=== PATIENT | female | born 1975 | race Two or more races ===

== ENCOUNTER 2016-10-11 21:21 | Emergency (ER) | payer OTHER ==
[2016-10-11 21:37] VITALS: BP 120/84; PULSE 77; TEMP 97.8; BMI 29.2
--- NOTE | 2016-10-11 22:03 | PDOC ---
History of Present Illness - General Chief Complaint: Pain, Acute Stated Complaint: RT WRIST PAIN Time Seen by Provider: 10/11/16 21:38 History Source: Patient Exam Limitations: No Limitations - History of Present Illness Initial Comments: 10/11/16 22:01 41 year-old female presents the ED with complaints of right wrist. Patient states was out this weekend drinking when she fell at a club on her right wrist. Patient states states this unable to flex or rotate her wrist secondary to discomfort. Patient denies any sensory changes distally and has not taken anything for the pain. Occurred: reports: this morning Severity: reports: mild Upper Extremity Pain Location: right: wrist Method of Injury: reports: fell Modifying Factors: improves with: None Extremity Pain Location - Extremity Pain Location Extremity Pain Locations: right: hand Past History - Past Medical History Allergies/Adverse Reactions: Allergies Allergy/AdvReac Type Severity Reaction Status Date / Time amoxicillin [Amoxicillin] Allergy Verified 10/11/16 21:34 ibuprofen Allergy Verified 10/11/16 21:34 Penicillins Allergy Verified 10/11/16 21:34 SEAFOOD Allergy Uncoded 10/11/16 21:34 Home Medications: Ambulatory Orders NK [No Known Home Medication] 10/11/16 Asthma: No Cancer: No Cardiac Disorders: No Diabetes: No HTN: No Seizures: No Thyroid Disease: No - Reproductive History (#): 6 Para: 4 - Immunization History Immunization Up to Date: No - Psycho/Social/Smoking Cessation Hx Anxiety: No Suicidal Ideation: No Smoking History: Never smoked Have you smoked in the past 12 months: No Number of Cigarettes Smoked Daily: 0 Information on smoking cessation initiated: No Hx Alcohol Use: No Drug/Substance Use Hx: No Substance Use Type: None Hx Substance Use Treatment: No Patient Lives Alone: No Lives with/in: spouse/SO Review of Systems - Review of Systems Able to Perform ROS?: Yes Constitutional: No: Symptoms Reported Respiratory: No: Symptoms reported Musculoskeletal: Yes: Joint Pain (right wrist), Joint Swelling (Right wrist ) Integumentary: No: Symptoms Reported Neurological: No: Numbness, Tingling, Weakness Hematologic/Lymphatic: No: Symptoms Reported *Physical Exam - Vital Signs Last Vital Signs Temp Pulse Resp BP Pulse Ox 97.8 F 77 14 120/84 99 10/11/16 21:35 10/11/16 21:35 10/11/16 21:35 10/11/16 21:35 10/11/16 21:35 - Physical Exam General Appearance: Yes: Nourished, Appropriately Dressed. No: Apparent Distress Comments:: 10/11/16 22:00 2+ right radial Extremity: positive: Normal Capillary Refill, Tender (over the distal right ulna. No crepitus or deformity). negative: Normal Range of Motion (secondary to discomfort) Integumentary: positive: Normal Color, Warm, Moist, Swelling (mild - over the distal right ulnar) Neurologic: positive: Motor Strength 5/5 (right fingers x 5). negative: Numbness, Sensory Deficit ED Treatment Course - RADIOLOGY Radiology Studies Ordered: Category Date Time Status WRIST- RIGHT [RAD] Stat Radiology 10/11/16 21:53 Ordered Medical Decision Making - Medical Decision Making 10/11/16 22:03 Patient with right wrist injury. Patient with mild edema and tenderness over the distal right ulna. Patient ordered for x-ray 10/11/16 22:13 X-ray negative for acute findings. Patient will be recommended to apply ice, rest and take NSAIDs for discomfort. *DC/Admit/Observation/Transfer Diagnosis at time of Disposition: Contusion of right wrist Qualifiers: Encounter type: initial encounter Qualified Code(s): S60.211A - Contusion of right wrist, initial encounter - Discharge Dispostion Disposition: HOME Condition at time of disposition: Good - Referrals Referrals: Casa Man MD [Primary Care Provider] - Kj Richter MD [Staff Physician] - - Patient Instructions Printed Discharge Instructions: DI for Wrist Pain Additional Instructions: Your x-ray did not show any signs of fracture or acute findings. I do recommend that you rest take NSAIDs such as Motrin and apply ice to the affected area for the next 3 days if no improvement over the next 5 days please contact referred orthopedist.
== END 2016-10-11 22:15 | disposition home or self-care (01) ==
LOC: JERFT 21:21
DX: S60.211A Contusion of right wrist, initial encounter (principal); W18.39XA Other fall on same level, initial encounter; Y93.89 Activity, other specified; Y92.59 Other trade areas as the place of occurrence of the external cause; Y99.8 Other external cause status
CPT/HCPCS: 73110-TC-RT; 99281-25

== ENCOUNTER 2019-07-18 20:01 | Emergency (ER) | payer OTHER ==
[2019-07-18 20:06] VITALS: BMI 25.7
--- NOTE | 2019-07-18 21:40 | PDOC ---
*Physical Exam - Vital Signs Last Vital Signs Temp Pulse Resp BP Pulse Ox 98.5 F 102 H 20 136/80 95 07/18/19 20:03 07/18/19 20:03 07/18/19 20:03 07/18/19 20:03 07/18/19 20:03 Discharge - Follow up/Referral Referrals: Sheron Reilly [Primary Care Provider] - - Patient Discharge Instructions - Post Discharge Activity
--- NOTE | 2019-07-18 21:40 | PDOC ---
History of Present Illness - General Chief Complaint: Pain Stated Complaint: ABD PAIN Time Seen by Provider: 07/18/19 21:40 - History of Present Illness Initial Comments: 07/18/19 23:44 44 year old woman with no pmhx who presents with 2 months if intermittent epigastric cramping pain that onsets after eating and when lying down. She denies any nausea or vomiting. Denies diarrhea, constipation fever. She only endorses a surgical history of tubal ligation but no other complaints. Denies regular alcohol use ROS GENERAL/CONSTITUTIONAL: No fever or chills. No weakness. HEAD, EYES, EARS, NOSE AND THROAT: No change in vision. No ear pain or discharge. No sore throat. CARDIOVASCULAR: No chest pain or shortness of breath RESPIRATORY: No cough, wheezing, or hemoptysis. GASTROINTESTINAL: No nausea, vomiting, diarrhea or constipation. GENITOURINARY: No dysuria, frequency, or change in urination. MUSCULOSKELETAL: No joint or muscle swelling or pain. No neck or back pain. SKIN: No rash PE GENERAL: Awake, alert, and fully oriented, in no acute distress HEAD: No signs of trauma, normocephalic, atraumatic EYES: EOMI, sclera anicteric, conjunctiva clear ENT: oropharynx clear without exudates. Moist mucosa NECK: Normal ROM, supple LUNGS: No distress, speaks full sentences, clear to auscultation bilaterally HEART: Regular rate and rhythm, normal S1 and S2, no murmurs, rubs or gallops, peripheral pulses normal and equal bilaterally. ABDOMEN: Soft, + epigastric tenderness, slight bilateral lower quadrant tenderness, normoactive bowel sounds. No guarding, no rebound. No masses EXTREMITIES : Normal inspection, Normal range of motion, no edema. No clubbing or cyanosis. NEUROLOGICAL: Cranial nerves II through XII grossly intact. Normal speech, normal gait, no focal sensorimotor deficits SKIN: Warm, Dry, normal turgor, no rashes or lesions noted MDM DDX including but not limited to: pancreatitis vs cholelithiasis r/o appendicitis ED Course: labs wnl lipase negative Angelica Dumont, PGY2 Emergency Medicine Past History - Past Medical History Allergies/Adverse Reactions: Allergies Allergy/AdvReac Type Severity Reaction Status Date / Time amoxicillin [Amoxicillin] Allergy Verified 10/11/16 21:34 ibuprofen Allergy Verified 10/11/16 21:34 Penicillins Allergy Verified 10/11/16 21:34 SEAFOOD Allergy Uncoded 10/11/16 21:34 Home Medications: Ambulatory Orders NK [No Known Home Medication] 10/11/16 Asthma: No Cancer: No Cardiac Disorders: No Diabetes: No HTN: No Seizures: No Thyroid Disease: No - Reproductive History (#): 6 Para: 4 - Immunization History Immunization Up to Date: No - Psycho Social/Smoking Cessation Hx Smoking History: Never smoked Have you smoked in the past 12 months: No Number of Cigarettes Smoked Daily: 0 Hx Alcohol Use: No Drug/Substance Use Hx: No Substance Use Type: None Hx Substance Use Treatment: No *Physical Exam - Vital Signs Last Vital Signs Temp Pulse Resp BP Pulse Ox 98.5 F 102 H 20 136/80 95 07/18/19 20:03 07/18/19 20:03 07/18/19 20:03 07/18/19 20:03 07/18/19 20:03 ED Treatment Course - LABORATORY CBC & Chemistry Diagram: 07/18/19 22:36 07/18/19 22:36 Discharge - Discharge Information Problems reviewed: Yes Clinical Impression/Diagnosis: Biliary colic, Enteritis Condition: Fair Disposition: HOME - Admission No - Follow up/Referral Referrals: Sheron Reilly [Primary Care Provider] - Manuel Simeon MD [Staff Physician] - - Patient Discharge Instructions Patient Printed Discharge Instructions: DI for Gallstones Additional Instructions: You were seen in the ED for abdominal pain Your labwork and imaging were significant for gallstones You likely have pain due to gallstones called biliary colic You have a referral to surgery for optional gallbladder removal Please follow up with your Family Doctor within 1 week. Return to the ER if you have worsening abdominal pain, nausea, vomiting, fever or any other concerning symptoms. - Post Discharge Activity
--- NOTE | 2019-07-18 21:43 | PDOC ---
Attending Attestation - Resident Resident Name: Angelica Dumont - ED Attending Attestation I have performed the following: I have examined & evaluated the patient, The case was reviewed & discussed with the resident, I agree w/resident's findings & plan - HPI HPI: 07/18/19 23:38 see resident hpi - Physicial Exam PE: 07/18/19 23:38 agree with resident exam - Medical Decision Making 07/18/19 23:39 44-year-old female with complaints of epigastric pain though tender to the lower abdomen Plan for right upper quadrant ultrasound and CT scan abdomen and pelvis for further evaluation IV fluids, antacids and analgesics administered
[2019-07-18] MEDS ORDERED: FAMOTIDINE 20 MG/50 ML IVPB 20 MG/50 ML MG IVPB ONE ×2 (21:50→22:21)
[2019-07-18] MEDS ORDERED: MAG HYDROX/AL HYDROX/SIMETH 30 ML UNIT-DOSE CUP PO ONE (21:50)
[2019-07-18] MEDS ORDERED: ACETAMINOPHEN 1000 MG/100 ML VIAL (NON FORMULARY) IVPB ONE (21:58)
[2019-07-18] MEDS ORDERED: SODIUM CHLORIDE 1,000 ML IV SCH (22:00)
[2019-07-18] MEDS ORDERED: ACETAMINOPHEN INJECTION 100 ML IVPB ONE (22:21)
[2019-07-18] MEDS ORDERED: MAG HYDROX/AL HYDROX/SIMETH 30 ML UNIT-DOSE CUP ONE (22:21)
[2019-07-18 23:01] LABS: BASO % 0.5 % (0-2.0); EOS % 1.1 % (0-4.5); HEMATOCRIT 38.8 % (32.4-45.2); HEMOGLOBIN 13.1 GM/dL (10.7-15.3); LYMPH % 27.8 % (8-40); MCH 31.2 pg (25.7-33.7); MCHC 33.7 g/dl (32.0-36.0); MEAN CELL VOLUME 92.7 fl (80-96); MEAN PLT VOLUME 7.9 fl (7.5-11.1); MONO % 7.5 % (3.8-10.2); NEUT % 63.1 % (42.8-82.8); PLATELET COUNT 299 K/MM3 (134-434); RBC 4.18 M/mm3 (3.60-5.2); RDW 13.3 % (11.6-15.6); WHITE BLOOD COUNT 12.3 K/mm3 (4.0-10.0)
[2019-07-18 23:22] LABS: AMYLASE 73 U/L (25-115); LIPASE 121 U/L (73-393)
[2019-07-18 23:25] LABS: ALBUMIN 3.6 g/dl (3.4-5.0); BILIRUBIN,TOTAL 0.3 mg/dL (0.2-1); BLOOD UREA NITROGEN 10.3 mg/dL (7-18); CALCIUM 8.7 mg/dL (8.5-10.1); CREATININE 0.8 mg/dL (0.55-1.3); POTASSIUM 4.2 mmol/L (3.5-5.1); TOT PROT 6.9 g/dl (6.4-8.2)
[2019-07-19 00:31] LABS: EPI CELLS 0.9 /HPF (0-5/HPF); HYALINE CASTS 0 /lpf (0-8); PH,URINE 6.5 (5.0-8.0); URINE APPEARANCE CLEAR; URINE BACTERIA 811.8 /hpf (NEGATIVE); URINE BILIRUBIN NEGATIVE (NEGATIVE); URINE COLOR YELLOW; URINE GLUCOSE (UA) NEGATIVE (NEGATIVE); URINE KETONE NEGATIVE (NEGATIVE); URINE LEUK ESTERASE 1+ (NEGATIVE); URINE NITRITE NEGATIVE (NEGATIVE); URINE PROTEIN NEGATIVE (NEGATIVE); URINE RBC 1 /hpf (0-4); URINE UROBILINOGEN 0.2 mg/dL (0.2-1.0); URINE WBC 8 /hpf (0-5)
[2019-07-19 05:19] VITALS: BP 120/76; PULSE 90; TEMP 98.3
--- NOTE | 2019-07-19 10:29 | EKG ---
Test Reason : Blood Pressure : / mmHG Vent. Rate : 081 BPM Atrial Rate : 081 BPM P-R Int : 134 ms QRS Dur : 082 ms QT Int : 382 ms P-R-T Axes : 043 062 024 degrees QTc Int : 443 ms NORMAL SINUS RHYTHM WITH SINUS ARRHYTHMIA NORMAL ECG WHEN COMPARED WITH ECG OF 30-JUN-2005 16:27, QRS DURATION HAS DECREASED NON-SPECIFIC CHANGE IN ST SEGMENT IN ANTERIOR LEADS Confirmed by MELIA MARK, MELISSA ([id number]) on 07/19/2019 10:29:41 AM Referred By: Confirmed By:MELISSA CÁRDENAS MD
== END 2019-07-19 03:45 | disposition home or self-care (01) ==
LOC: JER 20:01
PROC: 3E033GC Introduction of Other Therapeutic Substance into Peripheral Vein, Percutaneous Approach (ICD-10-PCS; principal; 2019-07-18)
PROC: 3E033NZ Introduction of Analgesics, Hypnotics, Sedatives into Peripheral Vein, Percutaneous Approach (ICD-10-PCS; 2019-07-18)
DX: K80.20 Calculus of gallbladder without cholecystitis without obstruction (principal); K52.9 Noninfective gastroenteritis and colitis, unspecified; Z88.0 Allergy status to penicillin; Z88.6 Allergy status to analgesic agent; Z91.013 Allergy to seafood
CPT/HCPCS: 36415; 74177-TC; 76705-TC; 80053; 81003; 82150; 83690; 84484; 84703; 85025; 87086; 87186; 93005; 93010; 96365; 96375; 99283-25; J0131; J7030

== ENCOUNTER 2019-08-11 12:11 | Emergency (ER) | payer OTHER ==
[2019-08-11 12:16] VITALS: BP 130/67; PULSE 92; TEMP 98.2; BMI 34.3
--- NOTE | 2019-08-11 13:06 | PDOC ---
History of Present Illness - General Chief Complaint: Rash Stated Complaint: Allergic Reaction Time Seen by Provider: 08/11/19 12:24 History Source: Patient Exam Limitations: No Limitations - History of Present Illness Initial Comments: 08/11/19 12:54 44 year old female with no significant medical history post op day 2 cholecystectomy and surgical history of tubal ligation complaining of rash this am. Patient states taking docusate, nitrofurontoin, and tramadol since surgery. States awaken this am with itching rash, unsure which medication caused the rash. Denies itching of throat or difficulty swallowing. 08/11/19 17:43 Timing/Duration: reports: this morning Severity: Yes: mild Location: reports: extremities, torso Respiratory Risk Factors: reports: no cause identified Modifying Factors: improves with: other (no intervention so far) Associated Symptoms: reports: rash. denies: sore throat Past History - Travel Traveled outside of the country in the last 30 days: No Close contact w/someone who was outside of country & ill: No - Past Medical History Allergies/Adverse Reactions: Allergies Allergy/AdvReac Type Severity Reaction Status Date / Time amoxicillin [Amoxicillin] Allergy Verified 08/11/19 12:15 ibuprofen Allergy Verified 08/11/19 12:15 Penicillins Allergy Verified 08/11/19 12:15 SEAFOOD Allergy Uncoded 08/11/19 12:15 Home Medications: Ambulatory Orders Nitrofurantoin Monohyd/M-Cryst [Macrobid -] 100 mg PO BID #14 capsule 08/01/19 Diphenhydramine [Benadryl -] 50 mg PO TID #21 capsule 08/11/19 Asthma: No Cancer: No Cardiac Disorders: No COPD: No Diabetes: No HTN: No Seizures: No Thyroid Disease: No - Surgical History Cholecystectomy: Yes - Reproductive History (#): 6 Para: 4 - Immunization History Immunization Up to Date: No - Psycho Social/Smoking Cessation Hx Smoking History: Never smoked Have you smoked in the past 12 months: No Number of Cigarettes Smoked Daily: 0 Hx Alcohol Use: No Drug/Substance Use Hx: No Substance Use Type: None Hx Substance Use Treatment: No Review of Systems - Review of Systems Able to Perform ROS?: Yes Is the patient limited Irish proficient: No Constitutional: No: Chills, Fever HEENTM: No: Eye Pain, Cataracts, Nose Pain, Throat Pain, Throat Swelling, Difficulty Swallowing, Mouth Swelling Respiratory: No: Orthopnea, Wheezing Cardiac (ROS): No: Chest Pain, Lightheadedness ABD/GI: No: Nausea, Poor Appetite, Indigestion : No: Hematuria, Incontinence, Pain Musculoskeletal: No: Joint Pain, Muscle Weakness Integumentary: Yes: Rash. No: Bruising, Erythema Neurological: No: Headache, Numbness, Paresthesia *Physical Exam - Vital Signs Last Vital Signs Temp Pulse Resp BP Pulse Ox 98.2 F 92 H 18 130/67 98 08/11/19 12:11 08/11/19 12:11 08/11/19 12:11 08/11/19 12:11 08/11/19 12:11 - Physical Exam General Appearance: Yes: Nourished HEENT: positive: EVONNE, Pharynx Normal. negative: TM Bulging, TM Dull Neck: positive: Supple. negative: Lymphadenopathy (R), Lymphadenopathy (L) Respiratory/Chest: positive: Lungs Clear Cardiovascular: positive: Regular Rhythm, Regular Rate Extremity: positive: Normal Range of Motion Integumentary: positive: Hives, Rash. negative: Swelling Neurologic: positive: Fully Oriented, Alert Medical Decision Making - Medical Decision Making 08/11/19 17:55 44 year old female with no significant medical history post op day 2 cholecystectomy and surgical history of tubal ligation complaining of rash this am. Patient states taking docusate, nitrofurontoin, and tramadol since surgery. States awaken this am with itching rash, unsure which medication caused the rash. Denies itching of throat or difficulty swallowing. Rash rx: benadryl will start when she gets home Discharge - Discharge Information Problems reviewed: Yes Clinical Impression/Diagnosis: Rash and nonspecific skin eruption Condition: Good Disposition: HOME - Admission No - Additional Discharge Information Prescriptions: Diphenhydramine [Benadryl -] 50 mg PO TID #21 capsule - Follow up/Referral - Patient Discharge Instructions Patient Printed Discharge Instructions: DI for Rash Additional Instructions: -Drink plenty of fluids -Stop taking medications you are taking now -Use prune juice, fruits, and vegetable to help with constipation -Call primary physician for follow up as needed - Post Discharge Activity Work/Back to School Note: Back to Work
== END 2019-08-11 13:16 | disposition home or self-care (01) ==
LOC: JERFT 12:11
DX: L50.9 Urticaria, unspecified (principal); R21 Rash and other nonspecific skin eruption; Z90.49 Acquired absence of other specified parts of digestive tract; Z98.51 Tubal ligation status; Z88.0 Allergy status to penicillin; Z91.013 Allergy to seafood; Z88.6 Allergy status to analgesic agent
CPT/HCPCS: 99281-25

== ENCOUNTER 2019-09-03 14:34 | Emergency (ER) | payer OTHER ==
[2019-09-03 14:55] VITALS: BP 132/84; PULSE 72; TEMP 98.2; BMI 31.2
[2019-09-03] MEDS ORDERED: ACETAMINOPHEN 500 MG TABLET (FP) ONE (15:13)
[2019-09-03] MEDS ORDERED: ACETAMINOPHEN 500 MG TABLET (FP) PO ONE (15:13)
--- NOTE | 2019-09-03 15:28 | PDOC ---
History of Present Illness - General Chief Complaint: Injury Stated Complaint: FALL/NECK PAIN Time Seen by Provider: 09/03/19 15:05 History Source: Patient - History of Present Illness Occurred: reports: yesterday Pain Location: reports: back, neck Method of Injury: Yes: fall Past History - Past Medical History Allergies/Adverse Reactions: Allergies Allergy/AdvReac Type Severity Reaction Status Date / Time amoxicillin [Amoxicillin] Allergy Verified 08/11/19 12:15 ibuprofen Allergy Verified 08/11/19 12:15 Penicillins Allergy Verified 08/11/19 12:15 SEAFOOD Allergy Uncoded 08/11/19 12:15 Home Medications: Ambulatory Orders Nitrofurantoin Monohyd/M-Cryst [Macrobid -] 100 mg PO BID #14 capsule 08/01/19 Diphenhydramine [Benadryl -] 50 mg PO TID #21 capsule 08/11/19 Acetaminophen [Tylenol] 650 mg PO Q6H #30 capsule 09/03/19 Oxycodone HCl/Acetaminophen [Percocet 5-325 mg Tablet] 1 tab PO Q6H #8 tablet MDD 3 doses 09/03/19 Asthma: No Cancer: No Cardiac Disorders: No COPD: No Diabetes: No HTN: No Seizures: No Thyroid Disease: No - Surgical History Cholecystectomy: Yes - Reproductive History (#): 6 Para: 4 - Immunization History Immunization Up to Date: No - Psycho Social/Smoking Cessation Hx Smoking History: Never smoked Have you smoked in the past 12 months: No Number of Cigarettes Smoked Daily: 0 Hx Alcohol Use: No Drug/Substance Use Hx: No Substance Use Type: None Hx Substance Use Treatment: No Review of Systems - Review of Systems ABD/GI: No: Nausea, Vomiting Musculoskeletal: Yes: Back Pain, Neck Pain. No: Joint Swelling Neurological: No: Headache, Numbness, Tingling, Weakness, Dizziness *Physical Exam - Vital Signs Last Vital Signs Temp Pulse Resp BP Pulse Ox 98.2 F 72 16 132/84 100 09/03/19 14:53 09/03/19 14:53 09/03/19 14:53 09/03/19 14:53 09/03/19 14:53 - Physical Exam General Appearance: Yes: Appropriately Dressed, Mild Distress HEENT: positive: Normal Voice Neck: positive: Tender (to b/l sternocleidomastoid muscles, no midline ttp, LROM 2/2 pain), Supple Respiratory/Chest: negative: Respiratory Distress Musculoskeletal: positive: Other (diffuse ttp to back) Extremity: negative: Tender, Swelling Integumentary: positive: Dry, Warm Neurologic: positive: Fully Oriented, Alert, Normal Mood/Affect, Motor Strength 5/5 Medical Decision Making - Medical Decision Making 09/03/19 15:17 44-year-old female, no significant history, here with multiple injuries s/p fall. Patient states she slipped and fell onto her back onto black ice yesterday and c/o having diffuse neck and back pain since. No head injury, LOC, headache, dizziness, nausea or vomiting. Patient recently had gallbladder surgery and currently taking tramadol for pain with no relief. see exam Neck and back strain s/p fall No e/o serious injury Dc w/ pain control PMD f/u as needed Discharge - Discharge Information Problems reviewed: Yes Clinical Impression/Diagnosis: Back sprain Fall Qualifiers: Encounter type: initial encounter Qualified Code(s): W19.XXXA - Unspecified fall, initial encounter Neck sprain Qualifiers: Encounter type: initial encounter Qualified Code(s): S13.9XXA - Sprain of joints and ligaments of unspecified parts of neck, initial encounter Condition: Good Disposition: HOME - Additional Discharge Information Prescriptions: Acetaminophen [Tylenol] 650 mg PO Q6H #30 capsule Oxycodone HCl/Acetaminophen [Percocet 5-325 mg Tablet] 1 tab PO Q6H #8 tablet MDD 3 doses - Follow up/Referral Referrals: Celia Torres [Primary Care Provider] - - Patient Discharge Instructions Patient Printed Discharge Instructions: DI for Neck Sprain, DI for Back Strain or Sprain Additional Instructions: Take medications as prescribed and if pain persists please follow-up with your PMD - Post Discharge Activity
== END 2019-09-03 15:26 | disposition home or self-care (01) ==
LOC: JERFT 14:34
DX: S39.012A Strain of muscle, fascia and tendon of lower back, initial encounter (principal); S29.012A Strain of muscle and tendon of back wall of thorax, initial encounter; S13.4XXA Sprain of ligaments of cervical spine, initial encounter; W00.2XXA Other fall from one level to another due to ice and snow, initial encounter; Y93.89 Activity, other specified; Y92.89 Other specified places as the place of occurrence of the external cause; Y99.8 Other external cause status; Z88.0 Allergy status to penicillin; Z88.6 Allergy status to analgesic agent; Z91.013 Allergy to seafood; Z90.49 Acquired absence of other specified parts of digestive tract
CPT/HCPCS: 99281-25

== ENCOUNTER 2021-06-22 11:26 | Emergency (ER) | payer OTHER ==
[2021-06-22 11:40] VITALS: BP 116/78; PULSE 75; TEMP 98; BMI 35.2
[2021-06-22] MEDS ORDERED: LIDOCAINE 5% TOPICAL PATCH TP ONE (12:05)
[2021-06-22] MEDS ORDERED: LIDOCAINE 5% TOPICAL PATCH ONE (12:15)
[2021-06-22] MEDS ORDERED: LIDOCAINE PATCH REMOVAL MC SCH (22:00)
== END 2021-06-22 12:53 | disposition home or self-care (01) ==
LOC: JER 11:26
DX: M25.551 Pain in right hip (principal)
CPT/HCPCS: 73523-TC-FY; 99283-25

== ENCOUNTER 2021-11-10 21:08 | Emergency (ER) | payer OTHER ==
[2021-11-10 21:14] VITALS: BP 135/83; PULSE 105; TEMP 97.7; BMI 35.3
[2021-11-10] MEDS ORDERED: LIDOCAINE PATCH REMOVAL MC SCH (22:00)
[2021-11-10] MEDS ORDERED: ACETAMINOPHEN 500 MG TABLET (FP) PO ONE (23:50)
[2021-11-10] MEDS ORDERED: LIDOCAINE 5% TOPICAL PATCH TP ONE (23:50)
[2021-11-10] MEDS ORDERED: ACETAMINOPHEN 325 MG TABLET (FP) ONE (23:52)
[2021-11-10] MEDS ORDERED: LIDOCAINE 5% TOPICAL PATCH ONE (23:52)
[2021-11-11] MEDS ORDERED: diazePAM 5 MG TABLET PO ONE (01:10)
[2021-11-11] MEDS ORDERED: diazePAM 5 MG TABLET ONE (01:12)
== END 2021-11-11 01:28 | disposition home or self-care (01) ==
LOC: JER 21:08 → JERFT 21:08 → JER 11-11 01:28
DX: M62.838 Other muscle spasm (principal)
CPT/HCPCS: 70450-TC; 72125-TC; 99284-25

== ENCOUNTER 2021-11-28 04:08 | Day surgery (SDC) | payer OTHER ==
[2021-11-25 11:26] VITALS: BMI 35.3
[2021-11-28] MEDS ORDERED: LIDOCAINE HCL/PF 1% SDV 5ML VIAL ONE (07:07)
[2021-11-28] MEDS ORDERED: DEXAMETHASONE SOD PHOSPHATE 10 MG/1 ML VIAL ONE ×2 (07:07→08:40)
[2021-11-28] MEDS ORDERED: LIDOCAINE HCL 1%, 10 MG/ML (20ML VIAL) INF ONE (08:47)
[2021-11-28] MEDS ORDERED: DEXAMETHASONE SOD PHOSPHATE 10 MG/1 ML VIAL IVPUSH ONE (08:48)
[2021-11-28 09:06] VITALS: TEMP 98.7
[2021-11-28 09:50] VITALS: BP 134/84; PULSE 68
== END 2021-11-28 09:45 | disposition home or self-care (01) ==
LOC: JASU-SURG 04:08
PROVIDERS: ATTEND Pain Medicine Pain Medicine
PROC: 3E0R33Z Introduction of Anti-inflammatory into Spinal Canal, Percutaneous Approach (ICD-10-PCS; 2021-11-28)
PROC: 3E0R3BZ Introduction of Anesthetic Agent into Spinal Canal, Percutaneous Approach (ICD-10-PCS; principal; 2021-11-28 08:00)
DX: M54.16 Radiculopathy, lumbar region (principal)
CPT/HCPCS: 76000-TC-FY; 81025; J1100

== ENCOUNTER 2022-02-08 22:56 | Emergency (ER) | payer OTHER ==
[2022-02-08 23:08] VITALS: BP 134/85; PULSE 92; TEMP 97.6; BMI 35.3
== END 2022-02-09 00:24 | disposition home or self-care (01) ==
LOC: JER 22:56
DX: H60.92 Unspecified otitis externa, left ear (principal)
CPT/HCPCS: 99282-25

== ENCOUNTER 2022-06-26 04:15 | Day surgery (SDC) | payer OTHER ==
[2022-06-24 16:28] VITALS: BMI 34.3
[~2022-06-26 04:15] MED LIST: DEXAMETHASONE SOD PHOSPHATE 10 MG/1 ML VIAL IVPUSH ONE; IOHEXOL 180 MG/1 ML ML IJ ONE; LIDOCAINE HCL 1% PRESERVATIVE FREE - 30ML VIAL IJ ONE
[2022-06-26 08:10] VITALS: RESP 18
[2022-06-26] MEDS ORDERED: SODIUM CHLORIDE 0.9% P/F 10 ML VIAL IJ ONE (08:16)
[2022-06-26] MEDS ORDERED: LIDOCAINE HCL 1% PRESERVATIVE FREE - 30ML VIAL IJ ONE (08:52)
[2022-06-26] MEDS ORDERED: IOHEXOL 180 MG/1 ML ML IJ ONE (08:54)
[2022-06-26] MEDS ORDERED: DEXAMETHASONE SOD PHOSPHATE 10 MG/1 ML VIAL IVPUSH ONE (08:58)
[2022-06-26 10:27] VITALS: BP 129/68; PULSE 68; TEMP 98.8
== END 2022-06-26 09:30 | disposition home or self-care (01) ==
LOC: JASU-SURG 04:15
PROVIDERS: ATTEND Pain Medicine Pain Medicine
PROC: 3E0R33Z Introduction of Anti-inflammatory into Spinal Canal, Percutaneous Approach (ICD-10-PCS; 2022-06-26)
PROC: 3E0R3BZ Introduction of Anesthetic Agent into Spinal Canal, Percutaneous Approach (ICD-10-PCS; principal; 2022-06-26 09:00)
DX: M54.16 Radiculopathy, lumbar region (principal)
CPT/HCPCS: 76000-TC-FY; 81025; J1100